=== PATIENT | male | born 1955 | race Two or more races ===

== ENCOUNTER 2020-02-26 17:09 | Outpatient (CLI) | payer BC, SELFPAY ==
--- NOTE | 2020-02-26 17:21 | XRR_ITS ---
PROCEDURE INFORMATION: Exam: XR Left Wrist Exam date and time: 02/26/2020 5:21 PM Age: 64 years old Clinical indication: Injury or trauma; Blunt trauma (contusions or hematomas); Injury date: 02/26/2020; Patient HX: Ladder fell on pt's left wrist. C/O pain and contusion left wrist; Additional info: Left wrist contusion TECHNIQUE: Imaging protocol: XR Left wrist. Views: 3 or more views. COMPARISON: No relevant prior studies available. FINDINGS: Bones/joints: Normal. Soft tissues: Normal. XR/XR wrist LT min 3V* [id number] IMPRESSION: No acute findings.
== END 2020-02-26 17:10 | disposition home or self-care (01) ==
PROVIDERS: Visit Provider Nurse Practitioner Family
DX: S60.212A Contusion of left wrist, initial encounter (principal); X58.XXXA Exposure to other specified factors, initial encounter
CPT/HCPCS: 73110

== ENCOUNTER 2022-11-30 09:24 | Outpatient (RCR) | payer MEDICARE, SELFPAY | END 2022-12-29 23:59 | disposition home or self-care (01) | LOC: SPT 09:24 | PROVIDERS: PCP Physician Assistant; Visit Provider Physician Assistant | DX: Z98.890 Other specified postprocedural states (principal) | CPT/HCPCS: 97110; 97140; 97161 ==

== ENCOUNTER 2023-01-01 09:11 | Outpatient (RCR) | payer MEDICARE, SELFPAY | END 2023-01-28 23:59 | disposition home or self-care (01) | LOC: SPT 09:11 | PROVIDERS: PCP Physician Assistant; Visit Provider Physician Assistant | DX: Z98.890 Other specified postprocedural states (principal) | CPT/HCPCS: 97110; 97140 ==

== ENCOUNTER 2023-01-29 06:00 | Outpatient (RCR) | payer MEDICARE, SELFPAY | END 2023-02-03 23:59 | disposition home or self-care (01) | LOC: SPT 06:00 | PROVIDERS: PCP Physician Assistant; Visit Provider Physician Assistant | DX: Z98.890 Other specified postprocedural states (principal) | CPT/HCPCS: 97110 ==

== ENCOUNTER 2023-07-21 06:29 | Emergency (ER) | payer MEDICARE, SELFPAY ==
[2023-07-21 06:38] VITALS: BP 127/96; PULSE 75; RESP 18; TEMP 36.4; O2SAT 100; BMI 22.1
--- NOTE | 2023-07-21 06:47 | XRR_ITS ---
PROCEDURE INFORMATION: Exam: XR Left Shoulder Exam date and time: 07/21/2023 7:05 AM Age: 68 years old Clinical indication: Injury or trauma; Fall; Blunt trauma (contusions or hematomas); Shoulder; Left TECHNIQUE: Imaging protocol: Radiologic exam of the left shoulder. Views: 2 or more views. COMPARISON: No relevant prior studies available. FINDINGS: Bones/joints: The humeral head is dislocated anteroinferior relative to the glenoid fossa. No definite fracture is detected. There are degenerative changes present. Lungs: The included portions of the left lung show mild atelectasis in the left lung base but no definite infiltrate. Soft tissues: Normal. XR/XR shoulder LT min 2V* [id number] IMPRESSION: Shoulder dislocation as described
--- NOTE | 2023-07-21 06:47 | XRR_ITS ---
PROCEDURE INFORMATION: Exam: XR Left Humerus Exam date and time: 07/21/2023 7:09 AM Age: 68 years old Clinical indication: Injury or trauma; Fall; Blunt trauma (contusions or hematomas); Arm, upper; Left TECHNIQUE: Imaging protocol: Radiologic exam of the left humerus. Views: 2 or more views. COMPARISON: CR (CHEST, ) 07/21/2023 7:05 AM FINDINGS: Bones/joints: Again is noted the anterior inferior dislocation of the humeral head relative to the glenoid fossa. No fracture is detected in the shoulder or in the humerus. There are degenerative changes present. Lungs: There is atelectasis in the left lung base without definite infiltrate. Soft tissues: Normal. XR/[place] [id number] IMPRESSION: Dislocated left shoulder as described. No acute fracture.
[2023-07-21 07:03] VITALS: RESP 22; O2SAT 100
[2023-07-21] MEDS: fentaNYL 50 mcg/mL INJ 2mL IVP (07:03)
[2023-07-21] MEDS: ondansetron 2 mg/ML SDV 2 mL 4 MG IVP (07:05)
--- NOTE | 2023-07-21 07:09 | W.ED.EXTPRO ---
HPI - Extremity Problem General: Chief complaint: Extremity Injury, Upper Stated complaint: fall, left arm pain Time Seen by Provider: 07/21/23 06:48 Source: patient Mode of arrival: ambulatory Limitations: no limitations History of Present Illness: This patient was getting ready for work this morning and slipped on his sandals and fell. He states he turned to his left to protect his right shoulder which just he just recovered from a rotator cuff repair recently. He landed on his left shoulder and had immediate pain. He denies hitting his head or loss of consciousness and this is affirmed by his spouse who is with him. He is right-handed. He has never had an injury to his left shoulder. MD Complaint: extremity pain Location: left and upper extremity Associated symptoms: Reports no associated symptoms; Deny chest pain or fever(s) Review of Systems Const: Denies: fever(s) Eyes: Denies: change in vision Card: Denies: chest pain, syncope or pre-syncope Resp: Denies: dyspnea, productive cough or non-productive cough GI: Denies: abdominal pain, nausea or vomiting : Denies: flank pain Musc: Denies: neck pain or back pain Neuro: Denies: headache(s), numbness in extremities or weakness in extremities Sanjay/Lymph: Denies: easy bruising or easy bleeding PFSH ED PFSH: Social History Smoking and tobacco/nicotine status: never used tobacco/nicotine Alcohol intake: never Substance/Drug Use: never Physical Exam Narrative: EXAM NARRATIVE: Patient is uncomfortable but alert and cooperative and answers questions appropriately. Const: COMMON NORMALS: average body habitus and patient oriented x3 GENERAL APPEARANCE: cooperative and in distress HENMT: COMMON NORMALS: normocephalic, atraumatic, Normal nasal mucous membranes and turbinates present, moist oral mucous membranes and oropharynx normal HEAD & SCALP: normal to inspection, normocephalic and atraumatic FACE & SINUS: normal facial exam NOSE: Normal nasal mucous membranes and turbinates present Eye: COMMON NORMALS: Equal, round and reactive pupils present and EOMs intact bilaterally PUPIL: Yes Equal, round and reactive pupils present Neck/C-Spine: CERVICAL SPINE: Yes cervical ROM normal, No Cervical spine tenderness, No step off deformity, No Paracervical muscle tenderness and No Trapezius muscle tenderness Chest: COMMONS NORMALS: normal inspection of the chest and normal palpation of entire chest wall Resp: COMMON NORMALS: normal respiratory effort, No retractions and clear to auscultation bilaterally AUSCULTATION: clear to auscultation bilaterally Cardio: COMMON NORMALS: regular rate, regular rhythm, No murmurs present (Cardio) and Peripheral pulses 2+ throughout RATE: regular rate RHYTHM: regular rhythm PERIPHERAL PULSES: Peripheral pulses 2+ throughout GI: COMMON NORMALS: Normal to inspection, nondistended, normoactive bowel sounds present and Soft to palpation PALPATION: Yes Soft to palpation : COMMON NORMALS: Yes no CVA tenderness BLADDER/KIDNEY EXAM: Yes no CVA tenderness Back/Pelvis: COMMON NORMALS: no CVA tenderness, thoracic and lumbar spine normal to inspection, no thoracic nor lumbar tenderness, thoraco-lumbar ROM normal and straight leg raise negative bilaterally Extremity: NARRATIVE EXTREMITY EXAM: Examination of the left shoulder reveals a step-off deformity at the subacromial area. He has intact sensation over the lateral upper arm as well as distally. Peripheral pulses are palpable and equal. LEFT UPPER EXTREMITY: Yes shoulder joint Neuro: COMMON NORMALS: patient oriented x3, moves all extremities, no focal motor deficits and no sensory deficits noted Procedures Orthopedic Joint Reduction Joint #1: Time Out Performed: Yes Side: left Joint Reduction Location: shoulder Analgesia: procedural sedation Shoulder Technique Used (if applicable): traction/counter-traction and external rotation Post-reduction neuro exam: intact Post-reduction vascular: intact Post Reduction X-Ray Obtained: Yes Post Reduction X-Ray Results: reduced Splint Applied: Yes (Sling) Patient Tolerated Procedure: well Course Reevaluation(s): Reevaluation #1: Patient has recovered from sedation. Stable I discussed expected course postoperative care and orthopedic follow-up with both he and spouse. Time: 08:20 Vital Signs: Vital signs: Vital Signs Temperature 98.4 F 07/21/23 07:49 Pulse Rate 58 L 07/21/23 07:49 Respiratory Rate 18 07/21/23 07:49 Blood Pressure 134/93 07/21/23 07:49 Pulse Oximetry 99 07/21/23 07:33 Oxygen Delivery Me thod Room Air 07/21/23 07:49 MDM - Extremity (Nontraumatic) Medical Decision Making Patient you have suffered a ground-level fall due to a slip without any evidence of syncope loss of conscious head injury etc. He present presented complaining of pain in his left shoulder. Clinical examination suggested possible dislocation but radiographs were obtained to ensure no evidence of fracture to humerus shoulder clavicle etc. Clinical examination otherwise did not suggest other injury to include head injury cervical spine injury etc. Radiographs confirmed anterior inferior dislocation. After informed consent the patient receives procedural sedation with constant attendance and using appropriate technique had a successful reduction of his left glenohumeral joint. Post reduction films revealed successful anatomic reduction without any evidence of bony injury at this time. There is no evidence of axial nerve or other neuropraxic injury. He recovered uneventfully. He is being placed in a sling prescribed analgesics and scheduled for orthopedic follow-up. XR interpretation done by ED provider, pending radiology final review Discharge Plan Discharge Patient Disposition: Home Clinical Impression: Dislocation of left shoulder joint Condition: Stable Prescriptions: New hydrocodone-acetaminophen 7.5-325 mg tablet 1 tab PO BID PRN (Reason: pain) Qty: 14 0RF Discharge Orders: Discharge ED (Routine); Ordered 07/21/23 Ordered By: Marty Duncan Referrals: Caleb Florence [Primary Care Provider] - Discharge Diet: Usual diet Discharge Activity: Limit activity as instructed Patient Instructions: Opioid Safety, Pain Management, Shoulder Dislocation (ED), Shoulder Dislocation Exercises (GEN) Activity Restrictions/Additional Instructions: Your left shoulder has been reduced and put back in place while you are in the emergency department. We have provided a sling that you should use for the next 2 weeks. We have also put a consult in for orthopedic follow-up. If you develop any new or worsening pain you are welcome to return to the emergency department. We have provided pain medication to use as needed for pain. Coding Level of Care Code ED Manager [facility]
[2023-07-21 07:33] VITALS: RESP 22; O2SAT 99
[2023-07-21] MEDS: fentaNYL 50 mcg/mL INJ 2mL 56.7000000000000028 MCG IVP (07:33)
--- NOTE | 2023-07-21 07:41 | XRR_ITS ---
PROCEDURE INFORMATION: Exam: XR Left Shoulder Exam date and time: 07/21/2023 7:43 AM Age: 68 years old Clinical indication: Pain; Shoulder; Left; Additional info: Post reduction TECHNIQUE: Imaging protocol: Radiologic exam of the left shoulder. Views: 1 view. COMPARISON: CR (CHEST, ) 07/21/2023 7:05 AM FINDINGS: Bones/joints: Single AP view of the left shoulder shows that the glenohumeral joint appears to have been reduced since the previous study. No fracture is detected. There are degenerative changes present. Lungs: There is atelectasis in the left lung base without definite infiltrate Soft tissues: Normal. XR/XR shoulder LT 1V [id number] IMPRESSION: Status post reduction.
[2023-07-21 07:49] VITALS: BP 134/93; PULSE 58; RESP 18; TEMP 36.9; O2SAT 98
[2023-07-21] MEDS: propofol 10 mg/mL SDV 20 mL 28.3000000000000007 MG IVP (07:55)
--- NOTE | 2023-07-21 08:31 | DCPLANNER ---
Message sent to Ortho for follow up in 2 weeks,
[2023-07-21 08:45] VITALS: PULSE 63; O2SAT 100
== END 2023-07-21 08:47 | disposition home or self-care (01) ==
PROVIDERS: Emergency Provider Emergency Medicine; PCP Family Medicine
DX: S43.005A Unspecified dislocation of left shoulder joint, initial encounter (principal); W01.0XXA Fall on same level from slipping, tripping and stumbling without subsequent striking against object, initial encounter
CPT/HCPCS: 23650; 73020; 73030; 73060; 94762; 94799; 96374; 99152; 99285; J2405; J2704; J3010

== ENCOUNTER → 2023-08-16 08:40 | Outpatient (BNVA) | payer MEDICARE, SELFPAY | PROVIDERS: PCP Family Medicine; Referring Provider Emergency Medicine; Visit Provider Specialist | DX: S49.92XA Unspecified injury of left shoulder and upper arm, initial encounter; W10.8XXA Fall (on) (from) other stairs and steps, initial encounter | CPT/HCPCS: 73030 ==

== ENCOUNTER → 2023-09-27 07:34 | Outpatient (BNVA) | payer MEDICARE, SELFPAY | PROVIDERS: PCP Family Medicine; Visit Provider Specialist | DX: S46.812D Strain of other muscles, fascia and tendons at shoulder and upper arm level, left arm, subsequent encounter; W01.0XXD Fall on same level from slipping, tripping and stumbling without subsequent striking against object, subsequent encounter | CPT/HCPCS: 99214 ==

== ENCOUNTER 2023-12-14 07:47 | Outpatient (RCR) | payer MEDICARE, SELFPAY | END 2023-12-30 23:59 | disposition home or self-care (01) | LOC: SPT 07:47 | PROVIDERS: Visit Provider Nurse Practitioner Family | DX: Z47.89 Encounter for other orthopedic aftercare (principal); M25.512 Pain in left shoulder; M25.612 Stiffness of left shoulder, not elsewhere classified | CPT/HCPCS: 97140; 97161 ==

== ENCOUNTER 2023-12-31 06:00 | Outpatient (RCR) | payer MEDICARE, SELFPAY | END 2024-01-29 23:59 | disposition home or self-care (01) | LOC: SPT 06:00 | PROVIDERS: Visit Provider Nurse Practitioner Family | DX: Z98.890 Other specified postprocedural states (principal) | CPT/HCPCS: 97110; 97140 ==

== ENCOUNTER 2024-01-30 06:00 | Outpatient (RCR) | payer MEDICARE, SELFPAY | END 2024-02-29 23:59 | disposition home or self-care (01) | LOC: SPT 06:00 | PROVIDERS: Visit Provider Nurse Practitioner Family | DX: Z98.890 Other specified postprocedural states (principal) | CPT/HCPCS: 97110 ==

== ENCOUNTER 2024-03-01 06:00 | Outpatient (RCR) | payer MEDICARE, SELFPAY | END 2024-03-31 23:59 | disposition home or self-care (01) | LOC: SPT 06:00 | PROVIDERS: Visit Provider Nurse Practitioner Family | DX: Z98.890 Other specified postprocedural states (principal) | CPT/HCPCS: 97110 ==

== ENCOUNTER 2024-04-01 06:30 | Outpatient (RCR) | payer MEDICARE, SELFPAY | END 2024-04-06 07:04 | disposition home or self-care (01) | LOC: SPT 06:30 | PROVIDERS: Visit Provider Nurse Practitioner Family | DX: Z98.890 Other specified postprocedural states (principal) | CPT/HCPCS: 97110 ==